=== PATIENT | male | born 1950 | race African-American/Black ===

== ENCOUNTER 2021-03-28 19:37 | Inpatient (IN) | payer MEDICARE, MEDICAID ==
[2021-03-28 20:38] LABS: ALT (SGPT) 30 U/L (8-55); AST (SGOT) 36 U/L (5-34); Albumin 3.4 g/dL (3.4-4.8); Alkaline Phosphatase 56 U/L (40-110); Anion Gap 13 mmol/L (10-20); BUN (Urea Nitrogen) 24 mg/dL (8.4-25.7); Calc. Creatinine Clearance 0 mL/min (70-130); Calcium 9.6 mg/dL (7.8-10.44); Carbon Dioxide 26 mmol/L (23-31); Chloride 98 mmol/L (98-107); Globulin 3.6 g/dL (2.4-3.5); Glucose 177 mg/dL (83-110); Potassium 3.4 mmol/L (3.5-5.1); Sodium 134 mmol/L (136-145)
[2021-03-28 20:49] LABS: Bacteria/HPF 4+ HPF (None Seen); Bilirubin Negative (Negative); Blood, Urine Trace (Negative); Clarity Turbid (Clear); Glucose, Urine (Dipstick) Normal (Negative); Ketone, Urine Negative (Negative); Leukocyte 25 Leu/uL (Negative); Nitrite Negative (Negative); Protein, Urine (Dipstick) 20 mg/dL (Neg-Trace); RBC/HPF 0-3 HPF (0-3); Renal Epithelial 0-3 HPF (None Seen); Specific Gravity, Urine 1.016 (1.002-1.036); Squamous Epithelial 0-3 HPF (0-3); Urobilinogen Normal mg/dL (Less than 2); pH, Urine 5.5 (5.0-9.0)
[2021-03-28] MEDS ORDERED: cefTRIAXone\\ROCEPHIN 2 GM VIAL ONE (20:50)
[2021-03-28 20:54] LABS: INR-International Normal Ratio 1.1; Prothrombin Time 14.8 sec (12.0-14.7)
[2021-03-28 20:55] LABS: PTT 32.3 sec (22.9-36.1)
[2021-03-28 21:07] LABS: Hemoglobin 10.6 g/dL (14.0-18.0); Mean Corpuscular HGB CONC 35.4 g/dL (32.0-36.0); Mean Corpuscular Hemoglobin 31.6 pg (27.0-31.0); Mean Corpuscular Volume 89.1 fL (78.0-98.0); Mean Platelet Volume 7.3 fL (7.4-10.4); Platelet Count 238 thou/uL (130-400); Red Blood Cell (RBC) Count 3.36 mill/uL (4.70-6.10)
[2021-03-28 21:20] LABS: Band 9 % (5-11); Lymphocytes 11 % (21-51); MDiff Complete? YES; Metamyelocyte 1 % (0-0); Monocytes 7 % (0-10); Neutrophil 72 % (42-75); Platelet Morphology Comment Appears Adequate; RBC Morphology Normal
[2021-03-28] MEDS ORDERED: Ondansetron PF 4 MG/2 ML Vial IVP PRN (22:58)
[2021-03-28] MEDS ORDERED: Ondansetron ODT 4 MG TAB PO PRN (22:58)
[2021-03-28] MEDS ORDERED: Potassium Chloride 20 MEQ TAB PO SCH (23:00)
[2021-03-28] MEDS ORDERED: Dextrose 50% Abboject 50 ML SYRINGE SLOW IVP PRN (23:05)
[2021-03-28] MEDS ORDERED: HumaLOG 300 UNITS/3 ML VIAL SC PRN (23:05)
[2021-03-28] MEDS ORDERED: Dextrose 5% in Water 1,000 ML IV PRN (23:05)
[2021-03-28] MEDS ORDERED: VANCOMYCIN 2 GRAM/400 ML BAG 2 GM in Premix Bag 1 BAG IVPB SCH (23:59)
[2021-03-29 00:16] LABS: Iron Binding Capacity, Total 246 mcg/dL (261-462)
[2021-03-29 00:17] LABS: Iron 18 ug/dL (65-175)
[2021-03-29] MEDS: Lactated Ringer's 1,000 ML IV SCH ×3 (02:29→21:28)
[2021-03-29] MEDS: Acetaminophen 325 MG TAB PO PRN ×2 (02:49→17:20)
[2021-03-29 02:54] VITALS: BMI 33.9
[2021-03-29] MEDS: HumaLOG 300 UNITS/3 ML VIAL SC PRN (05:52)
[2021-03-29 07:15] LABS: #Lymphocytes 2.2 thou/uL (1.20-3.40); #Monocytes 1.8 thou/uL (0.11-0.59); #Neutrophils 16.7 thou/uL (1.40-6.50); %Basophils 0.2 % (0.0-1.0); %Eosinophils 0.1 % (0.0-10.0); %Lymphocytes 10.5 % (21.0-51.0); %Monocytes 8.7 % (0.0-10.0); %Neutrophils 80.5 % (42.0-75.0); Hemoglobin 9.9 g/dL (14.0-18.0); Mean Corpuscular HGB CONC 34.3 g/dL (32.0-36.0); Mean Corpuscular Hemoglobin 30.8 pg (27.0-31.0); Mean Corpuscular Volume 89.9 fL (78.0-98.0); Mean Platelet Volume 7.4 fL (7.4-10.4); Platelet Count 224 thou/uL (130-400); Red Blood Cell (RBC) Count 3.21 mill/uL (4.70-6.10); White Blood Cell (WBC) Count 20.7 thou/uL (4.8-10.8)
[2021-03-29 07:32] LABS: Anion Gap 12 mmol/L (10-20); BUN (Urea Nitrogen) 24 mg/dL (8.4-25.7); Calc. Creatinine Clearance 73 mL/min (70-130); Calcium 8.6 mg/dL (7.8-10.44); Carbon Dioxide 25 mmol/L (23-31); Chloride 102 mmol/L (98-107); Glucose 182 mg/dL (83-110); Potassium 3.3 mmol/L (3.5-5.1); Sodium 136 mmol/L (136-145)
[2021-03-29] MEDS: Iron Polysaccharides Complex 150 MG CAP PO SCH (09:20)
[2021-03-29] MEDS: Enoxaparin Sodium 40 MG/0.4 ML SYRINGE SC SCH (09:20)
[2021-03-29] MEDS: metFORMIN 500 MG TAB PO SCH ×2 (09:21→17:18)
[2021-03-29] MEDS: Losartan 25 MG TAB PO SCH (09:21)
[2021-03-29] MEDS: Ascorbic Acid 500 mg Chewable Tablet PO SCH (09:21)
[2021-03-29] MEDS: Aspirin 81 mg Enteric Coated Tablet PO SCH (09:21)
[2021-03-29] MEDS: HumuLIN 70/30 (300 UNITS/3 ML VIAL) SC SCH ×2 (09:22→21:33)
[2021-03-29] MEDS ORDERED: Potassium Chloride 20 MEQ TAB PO SCH (11:15)
[2021-03-29 11:51] LABS: SARS-CoV-2 PCR by NAA Not Detected (NotDetected)
[2021-03-29] MEDS: cefTRIAXone\\ROCEPHIN 1 GM in Sodium Chloride 0.9% 100 ML IVPB SCH (21:32)
[2021-03-29] MEDS: Hydrochlorothiazide 25 MG TAB PO SCH (21:33)
[2021-03-29] MEDS: Atorvastatin Calcium 40 MG TAB PO SCH (21:33)
[2021-03-30] MEDS: Lactated Ringer's 1,000 ML IV SCH ×3 (05:46→20:57)
[2021-03-30] MEDS: Acetaminophen 325 MG TAB PO PRN ×2 (05:55→20:58)
[2021-03-30 08:01] LABS: Hemoglobin 9.1 g/dL (14.0-18.0); Mean Corpuscular HGB CONC 33.6 g/dL (32.0-36.0); Mean Corpuscular Hemoglobin 30.6 pg (27.0-31.0); Mean Platelet Volume 7.8 fL (7.4-10.4); Platelet Count 203 thou/uL (130-400); RBC Distribution Width 12.2 % (11.5-14.5); Red Blood Cell (RBC) Count 2.96 mill/uL (4.70-6.10); White Blood Cell (WBC) Count 14.8 thou/uL (4.8-10.8)
[2021-03-30 08:03] LABS: Anion Gap 13 mmol/L (10-20); BUN (Urea Nitrogen) 23 mg/dL (8.4-25.7); Calc. Creatinine Clearance 67 mL/min (70-130); Calcium 8.5 mg/dL (7.8-10.44); Carbon Dioxide 22 mmol/L (23-31); Chloride 103 mmol/L (98-107); Glucose 160 mg/dL (83-110); Potassium 3.2 mmol/L (3.5-5.1); Sodium 135 mmol/L (136-145)
[2021-03-30] MEDS: Losartan 25 MG TAB PO SCH (08:19)
[2021-03-30] MEDS: Aspirin 81 mg Enteric Coated Tablet PO SCH (08:19)
[2021-03-30] MEDS: metFORMIN 500 MG TAB PO SCH ×2 (08:19→18:09)
[2021-03-30] MEDS: Enoxaparin Sodium 40 MG/0.4 ML SYRINGE SC SCH (08:20)
[2021-03-30] MEDS: HumuLIN 70/30 (300 UNITS/3 ML VIAL) SC SCH ×2 (08:20→20:57)
[2021-03-30] MEDS ORDERED: FLU VACC QS2021-22(65YR UP)/PF 240 MCG/0.7 ML SYRINGE IM ONE (09:00)
[2021-03-30 09:21] LABS: Band 4 % (5-11); Eosinophils 1 % (0-10); Lymphocytes 16 % (21-51); MDiff Complete? YES; Monocytes 5 % (0-10); Neutrophil 74 % (42-75); Platelet Morphology Comment Appears Adequate; Polychromasia SLIGHT = 2-3 cells (100X) (0-2/hpf)
[2021-03-30] MEDS ORDERED: Polyethylene Glycol 3350 17 GM Packet PO PRN (11:22)
[2021-03-30] MEDS ORDERED: Sodium Chloride 0.9% 1,000 ML IV SCH (11:30)
[2021-03-30] MEDS ORDERED: Potassium Chloride 20 MEQ TAB PO SCH (12:10)
[2021-03-30 15:53] LABS: Anion Gap 14 mmol/L (10-20); BUN (Urea Nitrogen) 21 mg/dL (8.4-25.7); Calc. Creatinine Clearance 66 mL/min (70-130); Calcium 8.3 mg/dL (7.8-10.44); Carbon Dioxide 22 mmol/L (23-31); Chloride 104 mmol/L (98-107); Glucose 128 mg/dL (83-110); Magnesium 1.3 mg/dL (1.6-2.6); Potassium 3.7 mmol/L (3.5-5.1); Sodium 136 mmol/L (136-145)
[2021-03-30] MEDS ORDERED: Magnesium 2 GM/50 ML 2 GM in Premix Bag 1 BAG IVPB SCH (18:15)
[2021-03-30] MEDS: cefTRIAXone\\ROCEPHIN 1 GM in Sodium Chloride 0.9% 100 ML IVPB SCH (20:56)
[2021-03-30] MEDS: Hydrochlorothiazide 25 MG TAB PO SCH (20:56)
[2021-03-30] MEDS: Atorvastatin Calcium 40 MG TAB PO SCH (20:56)
[2021-03-31] MEDS: Lactated Ringer's 1,000 ML IV SCH (05:52)
[2021-03-31 06:54] LABS: #Basophils 0.1 thou/uL (0.0-0.2); #Eosinphils 0.3 thou/uL (0.0-0.7); #Lymphocytes 2.1 thou/uL (1.20-3.40); #Monocytes 1.1 thou/uL (0.11-0.59); #Neutrophils 7.8 thou/uL (1.40-6.50); %Basophils 0.6 % (0.0-1.0); %Eosinophils 2.7 % (0.0-10.0); %Lymphocytes 18.3 % (21.0-51.0); %Monocytes 9.3 % (0.0-10.0); %Neutrophils 69.1 % (42.0-75.0); Hemoglobin 9.4 g/dL (14.0-18.0); Mean Corpuscular HGB CONC 35.6 g/dL (32.0-36.0); Mean Corpuscular Hemoglobin 31.7 pg (27.0-31.0); Mean Platelet Volume 6.9 fL (7.4-10.4); Platelet Count 264 thou/uL (130-400); Red Blood Cell (RBC) Count 2.96 mill/uL (4.70-6.10); White Blood Cell (WBC) Count 11.3 thou/uL (4.8-10.8)
[2021-03-31 07:12] LABS: Anion Gap 11 mmol/L (10-20); BUN (Urea Nitrogen) 24 mg/dL (8.4-25.7); Calc. Creatinine Clearance 62 mL/min (70-130); Calcium 8.3 mg/dL (7.8-10.44); Carbon Dioxide 24 mmol/L (23-31); Chloride 104 mmol/L (98-107); Glucose 72 mg/dL (83-110); Magnesium 1.7 mg/dL (1.6-2.6); Potassium 3.4 mmol/L (3.5-5.1); Sodium 136 mmol/L (136-145)
[2021-03-31] MEDS: HumuLIN 70/30 (300 UNITS/3 ML VIAL) SC SCH ×2 (08:11→22:07)
[2021-03-31] MEDS: Losartan 25 MG TAB PO SCH (08:13)
[2021-03-31] MEDS: Iron Polysaccharides Complex 150 MG CAP PO SCH (08:13)
[2021-03-31] MEDS: Aspirin 81 mg Enteric Coated Tablet PO SCH (08:14)
[2021-03-31] MEDS: Enoxaparin Sodium 40 MG/0.4 ML SYRINGE SC SCH (08:14)
[2021-03-31] MEDS: metFORMIN 500 MG TAB PO SCH ×2 (08:14→16:58)
[2021-03-31] MEDS: Ascorbic Acid 500 mg Chewable Tablet PO SCH (08:14)
[2021-03-31] MEDS ORDERED: Tamsulosin HCl 0.4 MG CAP PO SCH (12:15)
[2021-03-31] MEDS: Acetaminophen 325 MG TAB PO PRN (12:18)
[2021-03-31 13:00] LABS: Creatinine, Urine 60.82 mg/dL (63-166)
[2021-03-31] MEDS ORDERED: cefTRIAXone\\ROCEPHIN 1 GM in Sodium Chloride 0.9% 100 ML IVPB SCH (16:45)
[2021-03-31] MEDS ORDERED: Morphine 4 MG/ML VIAL SLOW IVP PRN (16:45)
[2021-03-31] MEDS: Atorvastatin Calcium 40 MG TAB PO SCH (22:05)
[2021-03-31] MEDS: Hydrochlorothiazide 25 MG TAB PO SCH (22:05)
[2021-04-01] MEDS: Acetaminophen 325 MG TAB PO PRN (05:22)
[2021-04-01 06:31] LABS: #Eosinphils 0.4 thou/uL (0.0-0.7); #Lymphocytes 1.7 thou/uL (1.20-3.40); #Monocytes 0.9 thou/uL (0.11-0.59); #Neutrophils 6.2 thou/uL (1.40-6.50); %Basophils 0.4 % (0.0-1.0); %Eosinophils 4.3 % (0.0-10.0); %Lymphocytes 18.4 % (21.0-51.0); %Monocytes 9.9 % (0.0-10.0); %Neutrophils 67.1 % (42.0-75.0); Hemoglobin 9.1 g/dL (14.0-18.0); Mean Corpuscular Hemoglobin 30.6 pg (27.0-31.0); Mean Corpuscular Volume 90.2 fL (78.0-98.0); Mean Platelet Volume 6.9 fL (7.4-10.4); Platelet Count 274 thou/uL (130-400); Red Blood Cell (RBC) Count 2.98 mill/uL (4.70-6.10); White Blood Cell (WBC) Count 9.3 thou/uL (4.8-10.8)
[2021-04-01 06:51] LABS: Anion Gap 15 mmol/L (10-20); BUN (Urea Nitrogen) 21 mg/dL (8.4-25.7); Calc. Creatinine Clearance 66 mL/min (70-130); Calcium 8.7 mg/dL (7.8-10.44); Carbon Dioxide 22 mmol/L (23-31); Chloride 103 mmol/L (98-107); Glucose 193 mg/dL (83-110); Potassium 3.2 mmol/L (3.5-5.1); Sodium 137 mmol/L (136-145)
[2021-04-01] MEDS: Aspirin 81 mg Enteric Coated Tablet PO SCH (08:43)
[2021-04-01] MEDS: metFORMIN 500 MG TAB PO SCH (08:43)
[2021-04-01] MEDS: HumuLIN 70/30 (300 UNITS/3 ML VIAL) SC SCH (08:44)
[2021-04-01 09:00] VITALS: TEMP 98.2
[2021-04-01] MEDS ORDERED: Tamsulosin HCl 0.4 MG CAP PO SCH (09:00)
[2021-04-01] MEDS: Losartan 25 MG TAB PO SCH (09:14)
[2021-04-01] MEDS: HumaLOG 300 UNITS/3 ML VIAL SC PRN (12:01)
[2021-04-01 13:29] VITALS: BP 126/79
== END 2021-04-01 14:31 | disposition home health service (06) | DRG 872 ==
LOC: ERS 19:37 → T4-B 22:39
PROVIDERS: ADMIT Family Medicine; ATTEND Family Medicine
PROC: 0T7D8ZZ Dilation of Urethra, Via Natural or Artificial Opening Endoscopic (ICD-10-PCS; principal; 2021-03-31)
DX: A41.9 Sepsis, unspecified organism (principal); N39.0 Urinary tract infection, site not specified; N17.9 Acute kidney failure, unspecified; E87.1 Hypo-osmolality and hyponatremia; J98.11 Atelectasis; Z20.822 Contact with and (suspected) exposure to COVID-19; I10 Essential (primary) hypertension; I87.2 Venous insufficiency (chronic) (peripheral); E66.9 Obesity, unspecified; D64.9 Anemia, unspecified; E87.6 Hypokalemia; E11.42 Type 2 diabetes mellitus with diabetic polyneuropathy; G89.29 Other chronic pain; M21.372 Foot drop, left foot; M21.371 Foot drop, right foot; E78.5 Hyperlipidemia, unspecified; Z79.82 Long term (current) use of aspirin; Z79.899 Other long term (current) drug therapy; I69.319 Unspecified symptoms and signs involving cognitive functions following cerebral infarction; I69.398 Other sequelae of cerebral infarction; Z68.33 Body mass index [BMI] 33.0-33.9, adult; Z79.84 Long term (current) use of oral hypoglycemic drugs
CPT/HCPCS: 36415; 36416; 71045; 76770; 80048; 80053; 81003; 81015; 82570; 82728; 83540; 83550; 83605; 83735; 84300; 85025; 85610; 85730; 87040; 87086; 90471; 90662; 90732; 94760; 96365; G0008; G0009; J0696; J1650; J1815; J3370; J3475; J3490; J7050; J7120; U0003; U0005

== ENCOUNTER 2021-06-12 22:10 | Emergency (ER) | payer MEDICARE, MEDICAID ==
[2021-06-12] MEDS ORDERED: Ondansetron PF 4 MG/2 ML Vial ONE (22:33)
[2021-06-12 23:04] LABS: Bilirubin Negative (Negative); Blood, Urine 3+ (Negative); Clarity Turbid (Clear); Glucose, Urine (Dipstick) >=1000 mg/dL (Negative); Ketone, Urine Negative (Negative); Leukocyte 500 Leu/uL (Negative); Nitrite Negative (Negative); Protein, Urine (Dipstick) 100 mg/dL (Neg-Trace); Specific Gravity, Urine 1.015 (1.002-1.036); Squamous Epithelial None Seen HPF (0-3); Urobilinogen Normal mg/dL (Less than 2)
[2021-06-12 23:17] LABS: Bacteria/HPF 4+ HPF (None Seen)
[2021-06-12 23:25] LABS: #Basophils 0.1 thou/uL (0.0-0.2); #Eosinphils 0.2 thou/uL (0.0-0.7); #Lymphocytes 4.9 thou/uL (1.20-3.40); #Monocytes 0.9 thou/uL (0.11-0.59); #Neutrophils 11.7 thou/uL (1.40-6.50); %Basophils 0.4 % (0.0-1.0); %Eosinophils 1.3 % (0.0-10.0); %Lymphocytes 27.4 % (21.0-51.0); %Monocytes 4.9 % (0.0-10.0); Hemoglobin 11.3 g/dL (14.0-18.0); Mean Corpuscular HGB CONC 31.4 g/dL (32.0-36.0); Mean Corpuscular Hemoglobin 28.3 pg (27.0-31.0); Mean Corpuscular Volume 90.1 fL (78.0-98.0); Mean Platelet Volume 6.8 fL (7.4-10.4); Platelet Count 325 thou/uL (130-400); Red Blood Cell (RBC) Count 3.98 mill/uL (4.70-6.10); White Blood Cell (WBC) Count 17.8 thou/uL (4.8-10.8)
[2021-06-12] MEDS ORDERED: Rocuronium Bromide 10 MG/ML (10ML VIAL) ONE (23:28)
[2021-06-12] MEDS ORDERED: Ketamine 50 MG/ML (10ML VIAL) ONE (23:28)
[2021-06-12] MEDS ORDERED: Cefepime 2 GM VIAL ONE (23:35)
[2021-06-12] MEDS ORDERED: Vancomycin 1 GM/200 ML BAG ONE (23:35)
[2021-06-12 23:36] LABS: Actual Bicarbonate (HCO3a) 18.5 mEq/L (22-28); Analyzer IN Cardio ER; Base Excess (BEa) -7.1 mEq/L (-2.0 to +3.0); CO2 Tension 37.4 mmHg (35.0-45.0); Calcium, Ionized (arterial) 1.16 mmol/L (1.12-1.30); Carboxyhemoglobin (COHb) 0.3 gm% (0.0-3.0); Hemoglobin (Hb) 11.2 g/dL (14.0-18.0); O2 Tension (PaO2), arterial 118.5 mmHg (> 70.0); Potassium - ABG Lab 3.11 mmol/L (3.70-5.30); pH, Arterial 7.31 (7.35-7.45)
[2021-06-12 23:40] LABS: ALT (SGPT) 39 U/L (8-55); AST (SGOT) 42 U/L (5-34); Albumin 3.8 g/dL (3.4-4.8); Alkaline Phosphatase 83 U/L (40-110); Anion Gap 24 mmol/L (10-20); BUN (Urea Nitrogen) 17 mg/dL (8.4-25.7); Bilirubin, Total 0.4 mg/dL (0.2-1.2); Calc. Creatinine Clearance 0 mL/min (70-130); Carbon Dioxide 18 mmol/L (23-31); Chloride 98 mmol/L (98-107); Globulin 4.5 g/dL (2.4-3.5); Glucose 303 mg/dL (83-110); Potassium 3.6 mmol/L (3.5-5.1); Protein, Total 8.3 g/dL (5.8-8.1); Sodium 136 mmol/L (136-145)
[2021-06-13 00:01] LABS: CKMB 3.9 ng/mL (0-6.6)
[2021-06-13 00:02] LABS: Puncture Site RRA
[2021-06-13] MEDS ORDERED: Norepinephrine 8 MG/0.9% NS 250 ML ONE (00:15)
[2021-06-13] MEDS ORDERED: Norepinephrine 4 MG/4 ML VIAL ONE (00:16)
[2021-06-13] MEDS ORDERED: EPINEPHrine 1 MG/10 ML Abboject SYRINGE ONE ×2 (00:17→22:51)
[2021-06-13] MEDS ORDERED: Atropine Sulfate 1 mg/10 ml Syringe ONE (22:51)
[2021-06-13] MEDS ORDERED: Calcium Chloride 1 GM/10 ML Abboject SYRINGE ONE (22:51)
[2021-06-13] MEDS ORDERED: Sodium Bicarb 50 MEQ/50 ML Abboject 8.4% SYRINGE ONE (22:51)
== END 2021-06-13 00:50 | disposition expired ==
LOC: ERS 22:10
DX: I46.9 Cardiac arrest, cause unspecified (principal); N39.0 Urinary tract infection, site not specified; R11.2 Nausea with vomiting, unspecified; E11.9 Type 2 diabetes mellitus without complications; I10 Essential (primary) hypertension
CPT/HCPCS: 31500; 36415; 36416; 36556; 36600; 71045; 80053; 81003; 81015; 82553; 82805; 83605; 84484; 85025; 87040; 87086; 92950; 93005; 96374; 96375; 96376; J0171; J0461; J0692; J2405; J3370